=== PATIENT | female | born 1995 | race American Indian/Alaskan Native ===

== ENCOUNTER 2020-10-18 18:42 | Inpatient (IN) | payer MEDICAID, OTHER ==
[2020-10-18 19:33] LABS: Bacteria,Urine 2+ /HPF (Negative); Bilirubin,Urine NEG (Negative); Blood,Urine NEG (Negative); Color,Urine Yellow (Yellow); Mucus,Urine 1+ /HPF; Protein,Urine <15 mg/dL mg/dL (Negative); Urobilinogen,Urine < 2.0 mg/dL (<2.0)
[2020-10-18] MEDS ORDERED: LACTATED RINGERS 1,000 ML IV ONE ×2 (19:53→21:19)
--- NOTE | 2020-10-18 21:48 | Ultrasound Report ---
ULTRASOUND OBSTETRIC LIMITED ULTRASOUND BIOPHYSICAL PROFILE INDICATION / CLINICAL INFORMATION: wellbeing. Clinical Gestational Age (GA): 39.6 weeks.days COMPARISON: None available. FINDINGS: BREATHING MOVEMENT = 2 GROSS BODY MOVEMENT = 2 TONE = 2 QUALITATIVE AMNIOTIC FLUID VOLUME = 2 TOTAL BIOPHYSICAL SCORE = 8/8 HEART RATE (beats per minute): 49 AMNIOTIC FLUID INDEX (cm) = 11.0 (normal = 7-24 cm) PRESENTATION: Cephalic. ADDITIONAL FINDINGS: None. IMPRESSION: 1. Biophysical Score = 8/8 2. No significant sonographic abnormality. Signer Name: Mynor Lee MD Signed: 10/18/2020 9:44 PM Workstation Name: [id number]
[2020-10-18] MEDS ORDERED: TERBUTALINE 1 MG/1 ML INJ SUB-Q PRN (23:32)
[2020-10-18] MEDS ORDERED: MINERAL OIL 30 ML ORAL LIQD PO PRN (23:32)
[2020-10-18] MEDS ORDERED: ePHEDrine SULFATE 50 MG/1 ML INJ IV PRN (23:32)
[2020-10-18] MEDS ORDERED: LIDOCAINE (2%) 20 MG/1 ML VIAL 20 ML MDV INFILTRATI ONE (23:32)
[2020-10-18] MEDS ORDERED: OXYTOCIN DRIP 30 UNITS/500 ML BAG IV SCH (23:45)
[2020-10-18] MEDS ORDERED: LACTATED RINGERS 1,000 ML IV SCH (23:45)
--- NOTE | 2020-10-18 23:54 | History and Physical Report ---
History of Present Illness Date of examination: 10/18/20 Date of admission: 10/18/2020 Chief complaint: Contractions History of present illness: 25 year old presents to L&D with contractions. Denies VB or LOF. 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 LMP 01/13/2020. EDC 10/19/2020. significant for the following: anemia (supplemented with iron), recurrent chlamydia times 2 (treated both times, ANAHI negative). labs are as follows: O+, antibody screen negative, rubella immune, hepatitis B surface antigen negative, HIV negative, RPR nonreactive, hemoglobin electophoresis AA, gonorrea positive/negative, chlamydia positive/positive/negative, HSV 2 negative, 1 hour sugar test 127, GBS negative. 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 denies: abnormal PAP smear, hepatitis B, hepatitis C, herpes, HIV, syphilis, trichomonas Family/Genetic History: none Social history: lives with family, full code. denies: smoking, alcohol abuse, prescription drug abuse, IV drug use - Obstetrical History Expected Date of Delivery: 10/19/20 Actual Gestation: 40 Week(s) 0 Day(s) : 2 Para: 1 Hx # Term Pregnancies: 1 Number of Pregnancies: 0 Spontaneous Abortions: 0 Induced : 0 Number of Living Children: 1 Medications and Allergies Allergies Allergy/AdvReac Type Severity Reaction Status Date / Time No Known Allergies Allergy Unverified 10/18/20 19:15 Active Meds: Active Medications Ephedrine Sulfate (Ephedrine Sulfate 50 Mg/1 Ml Inj) 10 mg IV Q2M PRN PRN Reason: Hypotension Lactated Ringer's (Lactated Ringers) 1,000 mls @ 125 mls/hr IV DIRECT ELIAS Oxytocin/Sodium Chloride (Pitocin/Ns 30 Unit/500ml) 30 units in 500 mls @ 40 mls/hr IV TITR ELIAS; Protocol Mineral Oil (Mineral Oil 30 Ml Oral Liqd) 30 ml PO QHS PRN PRN Reason: Constipation Terbutaline Sulfate (Terbutaline 1 Mg/1 Ml Inj) 0.25 mg SUB-Q ONCE PRN PRN Reason: Hyperstimulation/Hypertonicity Review of Systems All systems: negative (contractions) - Vital Signs Vital signs: Vital Signs Temp Pulse Resp BP Pulse Ox 98.6 F 97 H 20 123/75 100 10/18/20 20:10 10/18/20 20:10 10/18/20 20:10 10/18/20 20:10 10/18/20 20:10 Temp Pulse Resp BP Pulse Ox 98.6 F 106 H 20 123/75 100 10/18/20 20:10 10/18/20 23:27 10/18/20 20:10 10/18/20 20:10 10/18/20 23:27 - Physical Exam Abdomen: Positive: normal appearance, soft. Negative: distention, tenderness, guarding, rigidity Genitourinary (Female): Positive: normal external genitalia, normal perenium. Negative: perineal/vulvar lesions Vagina: Positive: normal moisture Uterus: Positive: enlarged. Negative: tender Anus/Rectum: Positive: normal perianal skin Extremities: Positive: normal. Negative: tenderness, edema - Obstetrical FHR: category 2 FHR comments: Normal baseline FHR with moderate variability and accelerations. Occasional brief variable FHR deceleration and one late FHR deceleration noted on EFM. No recurrent decelerations noted. Cervical Dilatation: 3.5 Cervical Effacement Percentage: 70 station: -2 Uterine Contraction Pattern: Regular Uterine Contraction Intensity: Mild Results All other labs normal. Assessment and Plan A: at 40 weeks gestation. Labor. GBS negative. FHR deceleration. P: Admit. Continuous EFM. Anticipate .
[2020-10-19 01:04] LABS: Hematocrit 31.5 % (30.3-42.9); Hemoglobin 10.1 gm/dl (10.1-14.3); Mean Corpuscular HGB Conc 32 % (30-34); Mean Corpuscular Volume 79 fl (79-97); Platelet Count 224 K/mm3 (140-440); Red Blood Count 3.97 M/mm3 (3.65-5.03); Red Cell Distribution Width 17.5 % (13.2-15.2)
[2020-10-19 01:29] LABS: Alanine Aminotransferase 9 units/L (7-56); Albumin 3.4 g/dL (3.9-5); Blood Urea Nitrogen 7 mg/dL (7-17); Hemolysis Index 0
[2020-10-19 01:42] LABS: BUN/Creatinine Ratio 12
[2020-10-19] MEDS ORDERED: fentaNYL 100 MCG/2 ML INJ IV ONE (03:27)
[2020-10-19] MEDS ORDERED: ONDANSETRON 4 MG/2 ML INJ IV ONE (05:53)
--- NOTE | 2020-10-19 08:33 | Anesthesia Consultation ---
Anesthesia Consult and Med Hx Date of service: 10/19/20 - Airway Anesthetic Teeth Evaluation: Good ROM Head & Neck: Adequate Mental/Hyoid Distance: Adequate Mallampati Class: Class II Intubation Access Assessment: Good - Pulmonary Exam CTA: Yes - Cardiac Exam Cardiac Exam: RRR - Pre-Operative Health Status ASA Pre-Surgery Classification: ASA2 Proposed Anesthetic Plan: Epidural - Pulmonary Hx Smoking: No Hx Asthma: No Hx Respiratory Symptoms: No SOB: No COPD: No Home Oxygen Therapy: No Hx Pneumonia: No Hx Sleep Apnea: No - Cardiovascular System Hx Hypertension: No Hx Coronary Artery Disease: No Hx Heart Attack/AMI: No Hx Angina: No Hx Percutaneous Transluminal Coronary Angioplasty (PTCA): No Hx Cardia Arrhythmia: No Hx Pacemaker: No Hx Internal Defibrillator: No Hx Valvular Heart Disease: No Hx Heart Murmur: No Hx Peripheral Vascular Disease: No - Central Nervous System Hx Neuromuscular Disorder: No Hx Seizures: No CVA: No Hx Back Pain: No Hx Psychiatric Problems: No - Gastrointestinal Hx Ulcer: No Hx Gastroesophageal Reflux Disease: Yes - Endocrine Hx Renal Disease: No Hx End Stage Renal Disease: No Hx Cirrhosis: No Hx Liver Disease: No Hx Insulin Dependent Diabetes: No Hx Non-Insulin Dependent Diabetes: No Hx Thyroid Disease: No Hx Hypothyroidism: No Hx Hyperthyroidism: No - Hematic Hx Anemia: Yes Hx Sickle Cell Disease: No - Other Systems Hx Alcohol Use: No Hx Substance Use: No Hx Cancer: No Hx Obesity: Yes
--- NOTE | 2020-10-19 08:34 | Progress Note ---
Labor Epidural - Labor Epidural Start Time: 08:07 Stop Time: 08:20 Performed by:: RENETTA ISRAEL Procedure: Patient is requesting a laboring epidural for laboring pain. Patient IDed, H&P reviewed, all questions and concerns were answered, and consent was signed. Timeout was performed at bedside. Patient in sitting position. Sterile prep and drape was performed. [3] ml of 1% lidocaine skin wheal at L[3]- L [4]. 18- gauge Tuohy epidural needle was advanced to loss of resistance with saline technique 6cm. Negative CSF negative blood. Epidural catheter advanced to [10] centimeters. [NEGATIVE] Aspiration [NEGATIVE] test dose. Sterile dressing applied. Patient tolerated procedure.
--- NOTE | 2020-10-19 08:52 | Progress Note ---
Assessment and Plan A: IUP@ 40 wks [facility] P: AROM Notify NICU of [facility] Anticipate Subjective - Subjective Date of service: 10/19/20 Principal diagnosis: IUP@ 40 wks Patient reports: movement normal Objective - Vital Signs Vital Signs: Vital Signs - 12hr 10/18/20 10/18/20 10/18/20 20:49 20:52 20:57 Temperature Pulse Rate 106 H 91 H 84 Respiratory Rate Blood Pressure Blood Pressure [Right] O2 Sat by Pulse 92 100 100 Oximetry 10/18/20 10/18/20 10/18/20 21:02 21:07 21:12 Temperature Pulse Rate 84 93 H 91 H Respiratory Rate Blood Pressure Blood Pressure [Right] O2 Sat by Pulse 100 100 99 Oximetry 10/18/20 10/18/20 10/18/20 21:17 21:22 21:27 Temperature Pulse Rate 95 H 90 105 H Respiratory Rate Blood Pressure Blood Pressure [Right] O2 Sat by Pulse 100 100 100 Oximetry 10/18/20 10/18/20 10/18/20 21:32 21:33 21:37 Temperature Pulse Rate 107 H 75 103 H Respiratory Rate Blood Pressure Blood Pressure [Right] O2 Sat by Pulse 100 76 L 100 Oximetry 10/18/20 10/18/20 10/18/20 21:42 21:50 21:53 Temperature Pulse Rate 106 H 149 H 109 H Respiratory Rate Blood Pressure Blood Pressure [Right] O2 Sat by Pulse 100 76 L 93 Oximetry 10/18/20 10/18/20 10/18/20 21:58 22:03 22:08 Temperature Pulse Rate 115 H 87 85 Respiratory Rate Blood Pressure Blood Pressure [Right] O2 Sat by Pulse 100 100 100 Oximetry 10/18/20 10/18/20 10/18/20 22:13 22:21 22:22 Temperature Pulse Rate 96 H 60 105 H Respiratory Rate Blood Pressure Blood Pressure [Right] O2 Sat by Pulse 100 73 L 98 Oximetry 10/18/20 10/18/20 10/18/20 22:27 22:32 22:34 Temperature Pulse Rate 101 H 109 H 98 H Respiratory Rate Blood Pressure Blood Pressure [Right] O2 Sat by Pulse 100 97 93 Oximetry 10/18/20 10/18/20 10/18/20 22:37 22:42 22:47 Temperature Pulse Rate 110 H 95 H 87 Respiratory Rate Blood Pressure Blood Pressure [Right] O2 Sat by Pulse 100 100 100 Oximetry 10/18/20 10/18/20 10/18/20 22:52 22:57 23:02 Temperature Pulse Rate 96 H 90 102 H Respiratory Rate Blood Pressure Blood Pressure [Right] O2 Sat by Pulse 99 99 100 Oximetry 10/18/20 10/18/20 10/18/20 23:07 23:12 23:17 Temperature Pulse Rate 95 H 94 H 98 H Respiratory Rate Blood Pressure Blood Pressure [Right] O2 Sat by Pulse 100 100 100 Oximetry 10/18/20 10/18/20 10/19/20 23:22 23:27 00:17 Temperature Pulse Rate 103 H 106 H 92 H Respiratory Rate Blood Pressure 124/64 Blood Pressure [Right] O2 Sat by Pulse 100 100 Oximetry 10/19/20 10/19/20 10/19/20 00:37 03:52 04:52 Temperature 98.4 F Pulse Rate 92 H Respiratory 16 18 18 Rate Blood Pressure Blood Pressure 124/64 [Right] O2 Sat by Pulse 100 Oximetry 10/19/20 10/19/20 10/19/20 05:12 07:26 07:32 Temperature 98.6 F Pulse Rate 77 98 H 98 H Respiratory 16 Rate Blood Pressure 116/67 128/73 Blood Pressure 128/73 [Right] O2 Sat by Pulse Oximetry 10/19/20 10/19/20 10/19/20 08:16 08:21 08:30 Temperature Pulse Rate 117 H 104 H 98 H Respiratory Rate Blood Pressure 131/69 123/63 125/63 Blood Pressure [Right] O2 Sat by Pulse Oximetry 10/19/20 10/19/20 08:35 08:44 Temperature Pulse Rate 96 H 90 Respiratory Rate Blood Pressure 106/58 105/51 Blood Pressure [Right] O2 Sat by Pulse Oximetry - Exam Breasts: normal Abdomen: Present: normal appearance, soft, normal bowel sounds, other (gravid) Vulva: both: normal Uterus: Present: normal, other (gravid) FHR: auscultation normal, category 1, other (occ decel with recovery) Uterine Contraction Monitor Mode: External Cervical Dilatation: 5 Cervical Effacement Percentage: 80 station: -2 Uterine Contraction Pattern: Regular Uterine Tone Measurement Phase: Resting Uterine Contraction Intensity: Moderate Extremities: normal - Labs Labs: Abnormal Labs 10/18/20 10/19/20 23:58 00:03 MCH 25 L RDW 17.5 H Glucose 121 H Alkaline Phosphatase 181 H Albumin 3.4 L Laboratory Results - last 24 hr 10/18/20 10/18/20 10/18/20 19:00 23:58 23:58 WBC 9.5 RBC 3.97 Hgb 10.1 Hct 31.5 MCV 79 MCH 25 L MCHC 32 RDW 17.5 H Plt Count 224 Sodium Potassium Chloride Carbon Dioxide Anion Gap BUN Creatinine Estimated GFR BUN/Creatinine Ratio Glucose Calcium Total Bilirubin AST ALT Alkaline Phosphatase Total Protein Albumin Albumin/Globulin Ratio Urine Color Yellow Urine Turbidity Clear Urine pH 7.0 Ur Specific Harrah 1.015 Urine Protein <15 mg/dl Urine Glucose (UA) Neg Urine Ketones Neg Urine Blood Neg Urine Nitrite Neg Urine Bilirubin Neg Urine Urobilinogen < 2.0 Ur Leukocyte Esterase Neg Urine WBC (Auto) 1.0 Urine RBC (Auto) 1.0 U Epithel Cells (Auto) 6.0 Urine Bacteria (Auto) 2+ Urine Mucus 1+ Syphilis IgG Antibody Blood Type O POSITIVE Antibody Screen Negative 10/18/20 10/19/20 23:58 00:03 WBC RBC Hgb Hct MCV MCH MCHC RDW Plt Count Sodium 138 Potassium 3.6 Chloride 104.0 Carbon Dioxide 24 Anion Gap 14 BUN 7 Creatinine 0.6 Estimated GFR > 60 BUN/Creatinine Ratio 12 Glucose 121 H Calcium 9.0 Total Bilirubin 0.20 AST 16 ALT 9 Alkaline Phosphatase 181 H Total Protein 7.1 Albumin 3.4 L Albumin/Globulin Ratio 0.9 Urine Color Urine Turbidity Urine pH Ur Specific Harrah Urine Protein Urine Glucose (UA) Urine Ketones Urine Blood Urine Nitrite Urine Bilirubin Urine Urobilinogen Ur Leukocyte Esterase Urine WBC (Auto) Urine RBC (Auto) U Epithel Cells (Auto) Urine Bacteria (Auto) Urine Mucus Syphilis IgG Antibody Nonreactive Blood Type Antibody Screen
[2020-10-19] MEDS ORDERED: fentaNYL-BUPIV 2 MCG/ML-0.125% 200 MCG/100 ML BAG EPIDURAL SCH (09:00)
[2020-10-19] MEDS ORDERED: ePHEDrine SULFATE 50 MG/1 ML INJ IV PRN (09:00)
[2020-10-19] MEDS ORDERED: NALOXONE 2 MG/2 ML INJ IV PRN (09:00)
[2020-10-19] MEDS ORDERED: OXYTOCIN DRIP 30,000 MILLIUNITS/500 ML BAG IV ONE (09:33)
--- NOTE | 2020-10-19 12:54 | Procedure Note ---
OB Delivery Note - Delivery Date of Delivery: 10/19/20 Surgeon: ROBERT KING Estimated blood loss: 100cc - Vaginal Delivery presentation: vertex Delivery position: OP Intrapartum events: meconium, mult. late decelerations, mult.variable deceleratio Delivery induction: none Delivery augmentation: rupture of membranes, pitocin Delivery monitor: external FHT, external uterine Route of delivery: vacuum extraction Delivery placenta: spontaneous Delivery cord: other (Body cord X 1) Delivery laceration: none Anesthesia: epidural Delivery comments: Called to for delivery by nurse. SVE 10/100%/+1 and pt was pushing. Fetus was noted in OP position with minimal caput, molding and meconium. heart rate was noted in the 80s-90s. Resuscitative measures were implemented and Dr Taylor was notified. Baby turned to OA position with vaccum assist by Dr Taylor and was delivered by technical document writer over an intact perineum per in an OA position. Head and shoulders were delivered with ease. A viable live stunned female was placed on mom's chest for skin to skin bonding after loose body cord was unwrapped. Cord was double clamped and cut. was then given to awaiting NICU nurse for an asses. 8/9. Spontaneous delivery of an intact placenta with 3CV. FF @ U2 with fundal masage and IV Pitocin. EBL 100cc. FW 3089 Gms. Mom and baby was left in stable condition with nurse. - Infant A at 1 minute: 8 at 5 minutes: 9 Infant Gender: Female
[2020-10-19] MEDS ORDERED: PROMETHAZINE 25 MG RECT SUPP PR PRN (13:00)
[2020-10-19] MEDS ORDERED: diphenhydrAMINE 25 MG CAP PO PRN (13:00)
[2020-10-19] MEDS ORDERED: WITCH HAZEL/ GLYCERIN PAD TP PRN (13:00)
[2020-10-19] MEDS ORDERED: PROMETHAZINE 25 MG TAB PO PRN (13:00)
[2020-10-19] MEDS ORDERED: LANOLIN/ZINC/DIMETHICONE (LANSINOH) 7 GM TP PRN (13:00)
[2020-10-19] MEDS ORDERED: ONDANSETRON 4 MG/2 ML INJ IV PRN (13:00)
--- NOTE | 2020-10-19 15:19 | Event Note ---
Date: 10/19/20 VAVD over intact perineum Vacuum applied for variables to 80bpm remote from delivery Vacuum appliedx3 with two pop offs. No excess traction. Vacuum removed with louise and Areli Schwab CNM proceeded with the remainder of the uncomplicated delivery. Gayle Taylor
[2020-10-19] MEDS ORDERED: MAGNESIUM HYDROXIDE (MOM) ORAL LIQD UDC PO PRN (22:00)
[2020-10-19] MEDS: IBUPROFEN 600 MG TAB PO SCH (22:10)
[2020-10-20 00:56] LABS: Hematocrit 28.6 % (30.3-42.9); Hemoglobin 9.1 gm/dl (10.1-14.3)
[2020-10-20 05:51] LABS: Amphetamine Screen,Urine PRESUMPTIVE NEGATIVE; Benzodiazepines Screen,Urine PRESUMPTIVE NEGATIVE; Cannabinoid Screen,Urine PRESUMPTIVE NEGATIVE; Cocaine Screen,Urine PRESUMPTIVE NEGATIVE; Methadone Screen,Urine PRESUMPTIVE NEGATIVE; Opiate Screen,Urine PRESUMPTIVE NEGATIVE
[2020-10-20] MEDS: IBUPROFEN 600 MG TAB PO SCH ×3 (06:29→18:19)
--- NOTE | 2020-10-20 10:40 | Post Anesthesia Evaluation ---
- Post Anesthesia Evaluation Patient Participated: Yes Airway Patent: Yes Stable Respiratory Function: Yes Nausea/Vomiting: No Temp > 96.8F: Yes Pain Manageable: Yes Adequeate Hydration: Yes Anesthesia Complications: No Block Receding Appropriately: Yes Patient on Ventilator: No
[2020-10-20 21:12] VITALS: BP 126/60
--- NOTE | 2020-10-20 21:52 | Discharge Summary ---
Providers - Providers Date of Admission: 10/19/20 00:40 Date of discharge: 10/20/20 Attending physician: DRE PINO Primary care physician: DRE PINO Hospitalization Reason for admission: induction of labor (intermittent decels at term) Delivery: , vacuum extraction Procedure details: s/p vacuum extraction for decels Laceration: none complications: none Discharge diagnosis: IUP at term delivered baby: female Hospital course: 25 year old admitted at 40w0d presents to L&D with contractions. Admitted for IOL for intermittent variable decels. Received care at [facility]-NEGATIVE ASSEMBL[facility] and records are available. significant for the following: anemia (supplemented with iron), recurrent chlamydia times 2 (treated both times, ANAHI negative). s/p vacuum assisted on 10/19/20. Intact perineum. Incidental COVID positive noted. Placed on contact precautions. Discharged in good condition on PPD1 after meeting all discharge goals with infant. Condition at discharge: Good Disposition: DC-01 TO HOME OR SELFCARE Plan - Provider Discharge Summary Activity: routine Diet: routine Instructions: routine Additional instructions: [] Smoking cessation referral if applicable(refer to patient education folder for contact #) [] Refer to [facility] Booklet Call your doctor immediately for: * Fever > 100.5 * Heavy vaginal bleeding ( >1 pad per hour) * Severe persistent headache * Shortness of breath * Reddened, hot, painful area to leg or breast * Drainage or odor from incision. * Keep incision clean and dry at all times and follow doctor's instructions regarding bathing/showering - Follow up plan Follow up: DRE PINO MD [Primary Care Provider] - 6 Weeks Forms: [facility] Discharge Summary, Discharge Signature Page
== END 2020-10-20 22:18 | disposition home or self-care (01) | DRG 774 ==
LOC: TRG 18:42 → APU 18:43 → TRG 10-19 00:39 → LD 10-19 00:40 → OB 10-19 14:35
PROVIDERS: ADMIT Obstetrics & Gynecology; ATTEND Obstetrics & Gynecology
PROC: 10D07Z6 Extraction of Products of Conception, Vacuum, Via Natural or Artificial Opening (ICD-10-PCS; principal; 2020-10-19)
PROC: 10907ZC Drainage of Amniotic Fluid, Therapeutic from Products of Conception, Via Natural or Artificial Opening (ICD-10-PCS; 2020-10-19)
PROC: 00HU33Z Insertion of Infusion Device into Spinal Canal, Percutaneous Approach (ICD-10-PCS; 2020-10-19)
PROC: 3E0R3BZ Introduction of Anesthetic Agent into Spinal Canal, Percutaneous Approach (ICD-10-PCS; 2020-10-19)
DX: O76 Abnormality in fetal heart rate and rhythm complicating labor and delivery (principal); O98.52 Other viral diseases complicating childbirth; Z3A.40 40 weeks gestation of pregnancy; Z37.0 Single live birth; P03.82 Meconium passage during delivery; U07.1 COVID-19
CPT/HCPCS: 36415; 59025; 76815; 76819; 80053; 80307; 81001; 85014; 85018; 85027; 86592; 86850; 86900; 86901; 87086; 96360; 96361; G0378; J2590; J3010; J7120; U0003